=== PATIENT | male | born 1970 | race Caucasian/White ===

== ENCOUNTER 2021-02-21 18:31 | Emergency (ER) | payer SELFPAY ==
[~2021-02-21 18:31] MED LIST: NAPROSYN500 MG PO; NORCO 7.5-3251 EACH PO
[2021-02-21 20:44] LABS: HEMOGLOBIN 15.9 gm/dl (14.0-17.5); RED BLOOD COUNT 5.03 M/UL (4.20-5.50); WHITE BLOOD COUNT 6.6 K/UL (4.5-11.0)
[2021-02-21 21:04] LABS: BUN/CREATININE RATIO 13 (0-10)
[2021-02-21] MEDS ORDERED: CYCLOBENZAPRINE10 MG PO (22:31)
[2021-02-21] MEDS ORDERED: NAPROSYN500 MG PO (22:31)
== END 2021-02-21 22:37 | disposition home or self-care (01) ==
LOC: ER1 18:31
PROVIDERS: Physician Assistant
DX: S39.012A Strain of muscle, fascia and tendon of lower back, initial encounter (principal); N20.0 Calculus of kidney; F17.290 Nicotine dependence, other tobacco product, uncomplicated; X58.XXXA Exposure to other specified factors, initial encounter
CPT/HCPCS: 80053; 81001; 83690; 85025; 87086; 99284